=== PATIENT | female | born 1960 | race Hispanic/Latino ===

== ENCOUNTER → 2023-01-14 | Outpatient (CLI) | payer MEDICARE, OTHER | END | disposition home or self-care (01) | LOC: RAH 09:14 | PROVIDERS: ATTEND Internal Medicine Gastroenterology | DX: K74.60 Unspecified cirrhosis of liver (principal); R10.13 Epigastric pain; Z90.49 Acquired absence of other specified parts of digestive tract | CPT/HCPCS: 76700; 93975 ==

== ENCOUNTER → 2025-01-03 | Outpatient (CLI) | payer OTHER ==
--- NOTE | 2025-01-03 13:25 | HMCIMG ---
CT CHEST HIGH RESOLUTION (WO) HISTORY: Interstitial pulmonary disease COMPARISON: None TECHNIQUE: Multiple sequential axial images of the chest were obtained from the thoracic inlet through upper abdomen. Patient was not given contrast through intravenous route. High resolution images were obtained. FINDINGS: There is no evidence of pulmonary nodule or parenchymal disease. No pleural effusion or pericardial effusion is seen. There is no evidence of pneumothorax. There are normal size mediastinal and hilar lymph nodes. The heart is not enlarged. Degenerative changes of the thoracolumbar spine are present. There is no evidence of adrenal nodule. Post gastric bypass surgical changes are seen. IMPRESSION: 1. No evidence of pulmonary nodule or effusion is seen. CT was performed with one or more following dose reduction techniques: automated exposure control, adjustment of the mA and kv according to patient's size, or use of a iterative reconstruction technique.
== END | disposition home or self-care (01) ==
LOC: RAH 10:42
PROVIDERS: ATTEND Internal Medicine
DX: J84.9 Interstitial pulmonary disease, unspecified (principal); M47.815 Spondylosis without myelopathy or radiculopathy, thoracolumbar region
CPT/HCPCS: 71250

== ENCOUNTER → 2025-07-12 | Outpatient (CLI) | payer OTHER ==
--- NOTE | 2025-07-12 14:44 | HMCIMG ---
ESOPHAGUS INDICATION: DYSPHAGIA FINDINGS: Examination was performed in standard fashion and shows the esophagus has normal caliber and peristalsis throughout. There is a moderate size hiatal hernia with grade 2 esophageal reflux. The stomach has fundus and body appears to be narrowed from prior gastric sleeve surgery., shape and is in normal position. Barium flows freely through the pylorus and into normal-appearing duodenal bulb and sweep. The angle of Treitz lies to the left of midline. Gastroesophageal reflux reaching the mid esophagus is noted during the examination. FLUORO TIME: 0.9 minute IMPRESSION: Gastroesophageal reflux, with small to moderate hiatal hernia The stomach fundus and the body appears to be narrowed suggesting of prior gastric gastric sleeve surgery.
== END | disposition home or self-care (01) ==
LOC: RAH 07:19
PROVIDERS: ATTEND Internal Medicine
DX: K21.9 Gastro-esophageal reflux disease without esophagitis (principal); K44.9 Diaphragmatic hernia without obstruction or gangrene; R13.10 Dysphagia, unspecified
CPT/HCPCS: 74220

== ENCOUNTER → 2025-08-23 | Outpatient (CLI) | payer OTHER ==
[2025-08-23 11:20] LABS: CREATININE 0.8 mg/dL (0.5-1.0); GLOMERULAR FILTR. RATE CALC 81.0 mL/min (>90); UREA NITROGEN, BLOOD 12.0 mg/dL (7-18)
== END | disposition home or self-care (01) ==
LOC: LAB 10:35
PROVIDERS: ATTEND Internal Medicine Gastroenterology
DX: K76.9 Liver disease, unspecified (principal)
CPT/HCPCS: 36415; 82565; 84520

== ENCOUNTER → 2025-08-24 | Outpatient (CLI) | payer OTHER ==
[~2025-08-24] MED LIST: IOHEXOL-350 75 ML VIAL IV ONE
--- NOTE | 2025-08-25 09:13 | HMCIMG ---
EXAM: CT Abdomen and Pelvis with IV contrast CLINICAL HISTORY: LIVER DISEASE, UNSPECIFIED TECHNIQUE: Axial computed tomography images of the abdomen and pelvis with intravenous contrast. CONTRAST: with intravenous contrast. COMPARISON: None provided. FINDINGS: LUNG BASES: Mild dependent atelectatic changes in the bilateral lower lobes. No pleural effusions are seen. LIVER: Unremarkable. GALLBLADDER AND BILE DUCTS: The gallbladder is not seen. The common bile duct is dilated with a maximum caliber of 8.3 mm. No intrahepatic biliary ductal dilatation is evident. PANCREAS: Unremarkable. SPLEEN: Unremarkable. ADRENAL GLANDS: Unremarkable. KIDNEYS, URETERS, AND BLADDER: The kidneys appear within normal limits. There is no hydronephrosis or hydroureter. No urinary calculi are seen. STOMACH AND BOWEL: Postsurgical changes of prior gastric sleeve. Unremarkable appearance of the bowel. No evidence of bowel obstruction. No evidence suggesting enteritis or colitis. APPENDIX: Normal appendix. PERITONEUM: No free fluid. No free air. LYMPH NODES: No lymphadenopathy is evident. REPRODUCTIVE: Post-hysterectomy status. No adnexal mass. VASCULATURE: No evidence of abdominal aortic aneurysm. BONES: No aggressive appearing osseous lesion. No acute osseous pathology evident. Grade I anterolisthesis of L4 over L5 vertebra. Multilevel degenerative changes in the visualized spine. IMPRESSION: 1. No acute intra-abdominal or pelvic findings. 2. Common bile duct dilation to 8.3 mm, without intrahepatic biliary ductal dilatation. This is likely related to the prior cholecystectomy. /Blain
== END | disposition home or self-care (01) ==
LOC: RAH 07:43
PROVIDERS: ATTEND Internal Medicine Gastroenterology
DX: K76.9 Liver disease, unspecified (principal); K76.6 Portal hypertension; J98.11 Atelectasis; K83.8 Other specified diseases of biliary tract; M43.16 Spondylolisthesis, lumbar region; M47.817 Spondylosis without myelopathy or radiculopathy, lumbosacral region; Q27.39 Arteriovenous malformation, other site; Z90.49 Acquired absence of other specified parts of digestive tract
CPT/HCPCS: 74177; Q9967